=== PATIENT | female | born 1980 | race Caucasian/White ===

== ENCOUNTER 2024-07-19 10:05 | Emergency (ER) | payer MEDICAID, OTHER ==
[~2024-07-19] VITALS: Ht 162.6 cm; Wt 104.5 kg
[~2024-07-19 10:05] MED LIST: DOCU-412 PO; HYDR-4062 PO
[2024-07-19 10:31] VITALS: TEMP 98.6
[2024-07-19 11:17] LABS: EOSINOPHILS % (AUTO) 0.5 % (1.0-6.0); HEMATOCRIT 46.2 % (36-46); HEMOGLOBIN 15.2 g/dL (12.0-16.0); LYMPHOCYTES # (AUTO) 1.1 K/uL (1.0-4.8); LYMPHOCYTES % (AUTO) 32.1 % (22.0-44.0); MEAN CORPUSCULAR HEMOGLOBIN 28.9 pg (26.0-34.0); MEAN CORPUSCULAR HGB CONC 32.9 G/dL (31.0-37.0); MEAN CORPUSCULAR VOLUME 88 fL (80-100); MONOCYTES # (AUTO) 0.3 K/uL (0.1-1.0); MONOCYTES % (AUTO) 9.5 % (2.0-9.0); NEUTROPHILS % (AUTO) 56.9 % (40.0-70.0); PLATELET COUNT (AUTO) 214 K/uL (150-450); RED BLOOD CELL COUNT(AUTO) 5.26 MIL/uL (4.00-5.20); RED CELL DISTRIBUTION WIDTH 13.9 % (11.5-14.5); WHITE BLOOD COUNT (AUTO) 3.6 K/uL (4.5-11.0)
[2024-07-19 11:26] LABS: ANION GAP 9 mmol/L (8-16); CALCIUM, TOTAL 8.6 mg/dL (8.8-10.5); CARBON DIOXIDE 29 mmol/L (22-29); CHLORIDE 102 mmol/L (98-107); CREATININE 0.81 mg/dL (0.60-1.30); GLOMERULAR FILTR. RATE CALC > 60 mL/min (>60); GLUCOSE,RANDOM 188 mg/dL (70-110); POTASSIUM 3.9 mmol/L (3.5-5.1); SODIUM SERUM 140 mmol/L (136-145); UREA NITROGEN, BLOOD 13 mg/dL (7-18)
[2024-07-19] MEDS: AmLODIPine BESYLATE 5 MG TABLET PO ONE ×2 (11:27→12:16)
[2024-07-19] MEDS: CloNIDine HCL 0.1 MG TABLET PO ONE (11:28)
[2024-07-19 11:35] LABS: TROPONIN I-HIGH SENSITIVITY 13 ng/L (<51)
[2024-07-19 14:22] VITALS: BP 134/97; PULSE 84; RESP 16; O2SAT 96
[2024-07-19] MEDS ORDERED: AMLO-257 PO (14:37)
== END 2024-07-19 14:56 | disposition home or self-care (01) ==
LOC: EMS 10:09
DX: I10 Essential (primary) hypertension (principal); R55 Syncope and collapse; Z90.49 Acquired absence of other specified parts of digestive tract
CPT/HCPCS: 71045; 80048; 84484; 85025; 93005; 99285; 36415-L1; 36415-TC